=== PATIENT | female | born 1985 | race Caucasian/White ===

== ENCOUNTER 2019-05-05 18:23 | Emergency (ER) | payer MEDICAID ==
[~2019-05-05] VITALS: Ht 154.9 cm; Wt 51.4 kg
[2019-05-05 19:57] LABS: BASOPHILS # (AUTO) 0.03 x10^3/uL (0-0.1); BASOPHILS % (AUTO) 0 % (0-1); EOSINOPHILS # (AUTO) 0.53 x10^3/uL (0-0.4); EOSINOPHILS % (AUTO) 7 % (1-7); LYMPHOCYTES # (AUTO) 2.36 x10^3/uL (1-3.4); LYMPHOCYTES % (AUTO) 30 % (22-44); MD NO; MEAN CORPUSCULAR HEMOGLOBIN 30.9 pg (27.0-34.8); MEAN CORPUSCULAR VOLUME 93.8 fL (80-100); MONOCYTES # (AUTO) 0.51 x10^3/uL (0.2-0.8); MONOCYTES % (AUTO) 7 % (2-9); NEUTROPHILS # (AUTO) 4.49 x10^3/uL (1.8-6.8); NEUTROPHILS % (AUTO) 57 % (42-75); PLATELET COUNT 251 x10^3/uL (130-400); RED BLOOD COUNT 4.86 x10^6/uL (3.82-5.3); RED CELL DISTRIBUTION WIDTH 13.1 % (9.6-15.2)
[2019-05-05 20:09] LABS: ALBUMIN 4.1 g/dL (3.4-5.0); ANION GAP 4 mmol/L (5-15); CHLORIDE 107 mmol/L (98-107)
[2019-05-05 20:15] LABS: ALANINE AMINOTRANSFERASE 22 U/L (12-78); ALKALINE PHOSPHATASE 69 U/L (45-117); BILIRUBIN,TOTAL 0.5 mg/dL (0.2-1.0); CREATININE 0.72 mg/dL (0.55-1.02); TOTAL PROTEIN 7.8 g/dL (6.4-8.2); TROPONIN I < 0.015 ng/mL (0.000-0.045)
--- NOTE | 2019-05-05 21:09 | NUR ---
pt called to room from lobby
[2019-05-05 21:22] VITALS: BP 136/82
--- NOTE | 2019-05-05 21:22 | NUR ---
PT TO ED FOR RIB PAIN X "A FEW DAYS" AFTER COUGHING. PT REPORTS COUGH X1 MONTH. PT CONNECTED TO ALL MONITORS. VSS. DR. HENSON TO BS FOR ASSESSMENT. ORDERS RECEIVED. NO NEEDS EXPRESSED. CALL LIGHT WITHIN REACH.
[2019-05-05] MEDS ORDERED: OXYcodone IR 5MG TABLET ONE (21:26)
[2019-05-05] MEDS ORDERED: ACETAMINOPHEN 500 MG TABLET ONE (21:27)
[2019-05-05] MEDS ORDERED: OXYcodone IR 5MG TABLET PO PRN (21:30)
[2019-05-05] MEDS ORDERED: ACETAMINOPHEN 500 MG TABLET PO ONE (21:30)
--- NOTE | 2019-05-05 21:31 | NUR ---
PT MEDICATED PER MAR. TOLERATED WELL.
== END 2019-05-05 21:36 | disposition home or self-care (01) ==
LOC: ED 21:15
DX: S29.011A Strain of muscle and tendon of front wall of thorax, initial encounter (principal); J20.8 Acute bronchitis due to other specified organisms; X58.XXXA Exposure to other specified factors, initial encounter; Y93.89 Activity, other specified; Y92.89 Other specified places as the place of occurrence of the external cause; Y99.8 Other external cause status
CPT/HCPCS: 36415; 71046; 80053; 84484; 85025; 93005; 99284